=== PATIENT | female | born 1945 | race Caucasian/White ===

== ENCOUNTER 2018-08-28 09:31 | Day surgery (SDC) | payer MEDICARE, BC ==
[~2018-08-28] VITALS: Ht 170.2 cm; Wt 103.0 kg
[~2018-08-28 09:31] MED LIST: ACET325 PO; ACET500 PO; ASPI325 PO; ASPI325EC PO; ATOR20 PO; Accuneb1.25 MG/3; BENA20 PO; Benazepril HCl10 MG PO; CELE200 PO; CENTRUM COMPLE1 EACH PO; CENTRUM SILVER1 EAC2 PO; CHOL10002; CHOL10002 PO; CONEST.625 PO; CYCL10 PO; ESTMED1.5T PO; FLUO10 PO; FOLBIC RF TABL1 EACH PO; FURO40 PO; HYDCHL12.5 PO; Lotensin Hct 21 EACH PO; MELA3 PO; OXYC5 PO; POTA10T PO; POTCHL20ER PO; Prozac20 MG; Prozac40 MG PO; ROXICODONE5 MG PO; SIMV10 PO; VITAMIN B122500 MC1 PO
== END 2018-08-28 12:37 | disposition home or self-care (01) ==
LOC: ORSCSDS 09:31
PROVIDERS: Internal Medicine Gastroenterology
PROC: 0DBP8ZX Excision of Rectum, Via Natural or Artificial Opening Endoscopic, Diagnostic (ICD-10-PCS; principal; 2018-08-28 11:00)
DX: Z12.11 Encounter for screening for malignant neoplasm of colon (principal); K62.1 Rectal polyp; Z86.010 Personal history of colon polyps; I10 Essential (primary) hypertension; F41.8 Other specified anxiety disorders; E05.90 Thyrotoxicosis, unspecified without thyrotoxic crisis or storm; Z79.899 Other long term (current) drug therapy
CPT/HCPCS: 88305; J7120

== ENCOUNTER 2019-04-17 09:55 | Day surgery (SDC) | payer MEDICARE, OTHER ==
[~2019-04-17] VITALS: Ht 167.6 cm; Wt 107.1 kg
[~2019-04-17 09:55] MED LIST changes: +Aspir 8181 MG PO; +MELATONIN10 M2 PO; +Magnesium500 M1 PO; +Potassium99 MG PO; +Premarin0.45 MG PO
--- NOTE | 2019-04-17 11:50 | NUR ---
04/17/19 Feli [place] SIMETHICONE USED DURING PROCEDURE.
== END 2019-04-17 12:45 | disposition home or self-care (01) ==
LOC: ORSCSDS 09:55
PROVIDERS: Internal Medicine Gastroenterology
PROC: 0DBK8ZX Excision of Ascending Colon, Via Natural or Artificial Opening Endoscopic, Diagnostic (ICD-10-PCS; principal; 2019-04-17 11:15)
DX: Z12.11 Encounter for screening for malignant neoplasm of colon (principal); D12.2 Benign neoplasm of ascending colon; Z86.010 Personal history of colon polyps; I10 Essential (primary) hypertension; F41.8 Other specified anxiety disorders; E05.90 Thyrotoxicosis, unspecified without thyrotoxic crisis or storm; Z79.82 Long term (current) use of aspirin; Z79.899 Other long term (current) drug therapy
CPT/HCPCS: 88305; J0330; J0461; J2405; J2704; J7120

== ENCOUNTER 2020-06-08 10:33 | Day surgery (SDC) | payer MEDICARE, OTHER ==
[~2020-06-08] VITALS: Ht 170.2 cm; Wt 108.1 kg
[~2020-06-08 10:33] MED LIST changes: +Amlodipine Besyl5 MG PO; +Aspirin EC81 MG PO; +BENAZEPRIL HCL20 M1 PO; +BUME1 PO; +MAGNESIUM GLU27.5 M1 PO; +MELATONIN1010 PO; +POTASSIUM GLUCO99 M1 PO; +PREMARIN0.45 MG PO
--- NOTE | 2020-06-08 11:35 | NUR ---
06/08/20 Ashia5 Dianne Mark 1 TRY RIGHT HAND BLEW CMML
== END 2020-06-08 13:50 | disposition home or self-care (01) ==
LOC: ORSCSDS 10:33
PROVIDERS: Internal Medicine Gastroenterology
PROC: 0DBM8ZX Excision of Descending Colon, Via Natural or Artificial Opening Endoscopic, Diagnostic (ICD-10-PCS; principal; 2020-06-08 12:15)
PROC: 0DBK8ZX Excision of Ascending Colon, Via Natural or Artificial Opening Endoscopic, Diagnostic (ICD-10-PCS; principal; 2020-06-08 12:15)
DX: R10.32 Left lower quadrant pain (principal); D12.4 Benign neoplasm of descending colon; D12.2 Benign neoplasm of ascending colon; K64.8 Other hemorrhoids; K64.4 Residual hemorrhoidal skin tags; I10 Essential (primary) hypertension; E78.49 Other hyperlipidemia; E05.90 Thyrotoxicosis, unspecified without thyrotoxic crisis or storm; Z79.899 Other long term (current) drug therapy; Z79.82 Long term (current) use of aspirin
CPT/HCPCS: 88305; J2704; J7120

== ENCOUNTER 2022-02-22 08:56 | Day surgery (SDC) | payer MEDICARE, BC ==
[2022-02-22] MEDS ORDERED: METF500 PO (11:21)
[2022-02-22] MEDS ORDERED: META800 PO (11:21)
[2022-02-22] MEDS ORDERED: FURO20 PO (11:22)
[2022-02-22] MEDS ORDERED: POTA10T PO (11:22)
[2022-02-22] MEDS ORDERED: HYDCHL25 PO (11:22)
[2022-02-22] MEDS ORDERED: Calcium Carbon500 MG PO (11:23)
[2022-02-22] MEDS ORDERED: Vitamin D400 UNI1 PO (11:23)
== END 2022-02-22 12:05 | disposition home or self-care (01) ==
LOC: ATC 08:56
DX: N28.9 Disorder of kidney and ureter, unspecified (principal); I10 Essential (primary) hypertension; E03.8 Other specified hypothyroidism; M19.90 Unspecified osteoarthritis, unspecified site; E78.5 Hyperlipidemia, unspecified; Z88.1 Allergy status to other antibiotic agents
CPT/HCPCS: 96360; J7030

== ENCOUNTER 2022-10-04 01:42 | Day surgery (SDC) | payer MEDICARE, BC ==
[~2022-10-04] VITALS: Wt 117.7 kg
[~2022-10-04 01:42] MED LIST changes: +Calcium Carbon500 MG PO; +FURO20 PO; +HYDCHL25 PO; +META800 PO; +METF500 PO; +Vitamin D400 UNI1 PO
[2022-10-04] MEDS ORDERED: ROPINIROLE HC0.2510 PO (15:25)
[2022-10-04] MEDS ORDERED: MYRBETRIQ50 MG PO (15:27)
[2022-10-04] MEDS ORDERED: Norvasc5 MG PO (15:28)
[2022-10-04] MEDS ORDERED: PRED5 PO (15:32)
== END 2022-10-04 16:23 | disposition home or self-care (01) ==
LOC: ATC 01:42
DX: M31.6 Other giant cell arteritis (principal); N18.9 Chronic kidney disease, unspecified; E11.22 Type 2 diabetes mellitus with diabetic chronic kidney disease; M16.12 Unilateral primary osteoarthritis, left hip
CPT/HCPCS: 96365; J3262

== ENCOUNTER 2022-10-12 18:57 | Emergency (ER) | payer MEDICARE, BC ==
[~2022-10-12] VITALS: Ht 170.2 cm; Wt 97.5 kg
[~2022-10-12 18:57] MED LIST changes: +MYRBETRIQ50 MG PO; +Norvasc5 MG PO; +PRED5 PO; +ROPINIROLE HC0.2510 PO
[2022-10-12] MEDS ORDERED: HYDR1TAB94 PO (20:05)
== END 2022-10-12 20:19 | disposition home or self-care (01) ==
LOC: ER 18:57
DX: S43.014A Anterior dislocation of right humerus, initial encounter (principal); X58.XXXA Exposure to other specified factors, initial encounter
CPT/HCPCS: 73030; J2704

== ENCOUNTER 2022-12-28 06:54 | Day surgery (SDC) | payer MEDICARE, BC ==
[~2022-12-28] VITALS: Ht 170.2 cm; Wt 117.9 kg
[~2022-12-28 06:54] MED LIST changes: +ACTEMRA400 MG/20 IV; +ALEN70 PO; +ALPR.25 PO; +AMLO5 PO; +CALC.25 PO; +HYDR1TAB94 PO; +LISI20 PO; +MAGNESIUM OXID500 MG PO; +Norco 5-325 Ta1 EACH PO; +OZEMPIC2 MG/0.75 SQ; +Prednisone10 MG PO; +Premarin0.3 MG PO; +ROPI.25 PO; +TOPROL XL25 MG PO; +Vitamin B Comple1 EA PO; +Vitamin D1000 UNI1 PO; +XARELTO20 MG PO
[2022-12-28 07:17] VITALS: BP 134/90
[2022-12-28 09:30] VITALS: BP 153/90
[2022-12-28 09:45] VITALS: BP 152/83
[2022-12-28 10:00] VITALS: BP 149/77
[2022-12-28 10:15] VITALS: BP 149/76
[2022-12-28 10:30] VITALS: BP 138/87
--- NOTE | 2022-12-28 12:02 | NUR ---
PT UP AND DRESSED PER SELF. SALINE LOCK REMOVED WITH CATHETER INTACT. DISCHARGE REVIEWED WITH PT, VERBALIZES UNDERSTANDING. PT RIDE HERE AND PT DISCHARGED PER W/C WITH ONE STAFF.
== END 2022-12-28 22:56 | disposition home or self-care (01) ==
LOC: MHTC 06:54
DX: I89.0 Lymphedema, not elsewhere classified (principal); N28.1 Cyst of kidney, acquired; N18.9 Chronic kidney disease, unspecified; F32.A Depression, unspecified; I12.9 Hypertensive chronic kidney disease with stage 1 through stage 4 chronic kidney disease, or unspecified chronic kidney disease; Z88.1 Allergy status to other antibiotic agents
CPT/HCPCS: 76937; 99152; 99153; C1769; C1887; C1894; J1644; J2250; J2405; J3010; J7030; Q9967

== ENCOUNTER 2023-01-30 00:22 | Day surgery (SDC) | payer MEDICARE, BC ==
[2023-01-30 08:04] VITALS: BP 159/93
== END 2023-01-30 09:55 | disposition home or self-care (01) ==
LOC: ATC 00:22
DX: M31.6 Other giant cell arteritis (principal); N18.9 Chronic kidney disease, unspecified; M16.12 Unilateral primary osteoarthritis, left hip
CPT/HCPCS: J3262

== ENCOUNTER 2023-02-27 02:28 | Day surgery (SDC) | payer MEDICARE, BC ==
[2023-02-27 08:58] VITALS: BP 133/89
== END 2023-02-27 10:51 | disposition home or self-care (01) ==
LOC: ATC 02:28
DX: M31.6 Other giant cell arteritis (principal); N18.9 Chronic kidney disease, unspecified; E11.22 Type 2 diabetes mellitus with diabetic chronic kidney disease; M16.12 Unilateral primary osteoarthritis, left hip
CPT/HCPCS: 96365; J3262

== ENCOUNTER 2023-04-26 02:29 | Day surgery (SDC) | payer MEDICARE, BC ==
[2023-04-26 10:00] VITALS: BP 150/81
== END 2023-04-26 11:29 | disposition home or self-care (01) ==
LOC: ATC 02:29
DX: M31.6 Other giant cell arteritis (principal); N18.9 Chronic kidney disease, unspecified; E11.22 Type 2 diabetes mellitus with diabetic chronic kidney disease; M16.12 Unilateral primary osteoarthritis, left hip
CPT/HCPCS: 96365; J3262

== ENCOUNTER 2023-05-29 00:30 | Day surgery (SDC) | payer MEDICARE, BC ==
[2023-05-29 10:05] VITALS: BP 132/79
--- NOTE | 2023-05-31 17:30 | NUR ---
STOP TIME 9709
== END 2023-05-29 12:07 | disposition home or self-care (01) ==
LOC: ATC 00:30
DX: M31.6 Other giant cell arteritis (principal); E11.22 Type 2 diabetes mellitus with diabetic chronic kidney disease; N18.9 Chronic kidney disease, unspecified
CPT/HCPCS: 96365; J3262

== ENCOUNTER 2023-06-15 09:28 | Day surgery (SDC) | payer MEDICARE, BC ==
[2023-06-15] VITALS (19 sets, daily range): BP systolic 165–204; BP diastolic 92–139
[~2023-06-15 09:28] MED LIST changes: +XARELTO15 MG PO; -XARELTO20 MG PO
[2023-06-15] MEDS ORDERED: ALBU90OI INH (10:53)
[2023-06-15] MEDS ORDERED: ESTRADIOL (TWI1 EAC4 TD (10:54)
[2023-06-15] MEDS ORDERED: GABA100 PO (10:55)
[2023-06-15] MEDS ORDERED: Norco 5-325 Ta1 EACH PO (10:57)
[2023-06-15] MEDS ORDERED: META800 PO (10:59)
[2023-06-15] MEDS ORDERED: MYRBETRIQ50 MG PO (11:00)
[2023-06-15] MEDS ORDERED: OMEP20ER PO (11:01)
[2023-06-15] MEDS ORDERED: ONDA4 PO (11:02)
--- NOTE | 2023-06-15 11:15 | NUR ---
PT AWAKE AND CONVERSING APPROPRIATELY POST PROCEDURE. PT DENIES PAIN POST PROCEDURE, VSS ON RA.
--- NOTE | 2023-06-15 11:44 | NUR ---
PT DRESSED SELF WITHOUT ISSUE, IV REMOVED-CANNULA INTACT. PT RECEIVED DISCHARGE INSTRUCTIONS, MED LIST AND AFTER CARE INSTRUCTIONS; VERBALIZED GOOD UNDERSTANDING. PT LEFT FACILITY VIA W/C, CONDITION STABLE.
== END 2023-06-15 12:30 | disposition home or self-care (01) ==
LOC: ORSCMMR 09:28 → MHTC 09:28 → ORSCMMR 09:32 → ORD 10:30 → MHTC 12:30 → ORSCMMR 12:30
DX: R93.1 Abnormal findings on diagnostic imaging of heart and coronary circulation (principal); I51.7 Cardiomegaly; I70.0 Atherosclerosis of aorta; I31.39 Other pericardial effusion (noninflammatory); I08.8 Other rheumatic multiple valve diseases
CPT/HCPCS: 93312; 93325; A9270; J2704; J7030

== ENCOUNTER 2023-06-26 03:32 | Day surgery (SDC) | payer MEDICARE, BC ==
[~2023-06-26 03:32] MED LIST changes: +ALBU90OI INH; +ESTRADIOL (TWI1 EAC4 TD; +GABA100 PO; +OMEP20ER PO; +ONDA4 PO
[2023-06-26 15:32] VITALS: BP 170/93
== END 2023-06-26 23:10 | disposition home or self-care (01) ==
LOC: ATC 03:32
DX: M31.6 Other giant cell arteritis (principal); E11.22 Type 2 diabetes mellitus with diabetic chronic kidney disease; N18.9 Chronic kidney disease, unspecified; M16.12 Unilateral primary osteoarthritis, left hip
CPT/HCPCS: 96365; J3262

== ENCOUNTER 2023-08-30 00:13 | Day surgery (SDC) | payer MEDICARE, BC ==
[2023-08-30] MEDS ORDERED: TOCILIZUMAB IV SCH (06:00)
[2023-08-30] MEDS ORDERED: NS IV SCH (06:00)
[2023-08-30 07:58] VITALS: BP 148/80
== END 2023-08-30 09:30 | disposition home or self-care (01) ==
LOC: ATC 00:13
DX: M31.6 Other giant cell arteritis (principal); N18.9 Chronic kidney disease, unspecified; E11.22 Type 2 diabetes mellitus with diabetic chronic kidney disease; M85.80 Other specified disorders of bone density and structure, unspecified site; M16.12 Unilateral primary osteoarthritis, left hip
CPT/HCPCS: 96365; J3262

== ENCOUNTER 2023-11-19 07:51 | Emergency (ER) | payer MEDICARE, BC ==
[~2023-11-19] VITALS: Ht 170.2 cm; Wt 108.9 kg
[2023-11-19] MEDS ORDERED: XARELTO20 M1 PO (08:21)
[2023-11-19] MEDS ORDERED: ESTRADIOL TD (08:22)
[2023-11-19 08:25] LABS: Source, Urine Clean Catch
[2023-11-19 08:46] LABS: Appearance, Urine Bloody (Clear); Bilirubin, Urine Neg (Neg); Blood, Urine 4+ (Neg); Color, Urine Red (P-Yellow); Glucose Qualitative, Urine Neg (Neg); Ketones, Urine Neg (Neg); Leukocyte Esterase, Urine 1+ (Neg); Nitrite, Urine Neg (Neg); Protein, Urine 4+ (Neg); Specific Gravity, Urine 1.015 (1.003-1.022); Urobilinogen, Urine NORM (Normal); pH, Urine 6.5 (5.0-8.0)
[2023-11-19 08:52] LABS: Bacteria Not Seen /hpf; Red Blood Cells, Urine TNTC /hpf (0-2); Squamous Epithelial Cells Rare /hpf (Few); White Blood Cells, Urine 25-50 /hpf (0-5)
[2023-11-19] MEDS ORDERED: NITR100CA PO (09:02)
[2023-11-19 09:09] VITALS: BP 154/90
== END 2023-11-19 09:09 | disposition home or self-care (01) ==
LOC: ER 07:51
PROVIDERS: Student in an Organized Health Care Education/Training Program
DX: N39.0 Urinary tract infection, site not specified (principal); Z88.1 Allergy status to other antibiotic agents; Z79.899 Other long term (current) drug therapy; I10 Essential (primary) hypertension
CPT/HCPCS: 81001; 87077; 87086; 87186; 99283

== ENCOUNTER → 2024-11-08 | Outpatient (CLI) | payer MEDICARE, BC ==
[~2024-11-08] MED LIST changes: +ESTRADIOL TD; +NITR100CA PO; +XARELTO20 M1 PO
[2024-11-08 16:24] LABS: BASOPHILS ABSOLUTE AUTO 0.03 K/mm3 (0.00-0.23); BASOPHILS PERCENT AUTO 0 % (0-2); EOSINOPHILS ABSOLUTE AUTO 0.24 K/mm3 (0.00-0.68); EOSINOPHILS PERCENT AUTO 3 % (0-6); Hematocrit 41.2 % (33.0-51.0); Hemoglobin 13.3 g/dL (11.5-16.0); IMMATURE GRAN ABSOLUTE AUTO 0.01 K/mm3 (0.00-0.10); IMMATURE GRAN PERCENT AUTO 0 % (0-1); LYMPHOCYTES ABSOLUTE AUTO 1.47 K/mm3 (0.84-5.20); LYMPHOCYTES PERCENT AUTO 21 % (21-46); MONOCYTES ABSOLUTE AUTO 0.69 K/mm3 (0.16-1.47); MONOCYTES PERCENT AUTO 10 % (4-13); Mean Corpuscular HGB 29.8 pg (26.0-34.0); Mean Corpuscular HGB Conc 32.3 g/dL (31.5-36.5); Mean Corpuscular Volume 92 fL (80-100); Mean Platelet Volume 11.5 fL (9.1-12.4); NEUTROPHILS ABSOLUTE AUTO 4.61 K/mm3 (1.96-9.15); NEUTROPHILS PERCENT AUTO 65 % (41-73); Platelet Count 177 K/mm3 (150-400); RDW Coefficient Variation 13.4 % (11.7-14.2); RDW Standard Deviation 45.7 fL (35.1-46.3); Red Blood Cell Count 4.47 M/mm3 (3.80-5.20); White Blood Cell Count 7.05 K/mm3 (4.00-11.30)
[2024-11-08 17:54] LABS: C-REACTIVE PROTEIN, EXT RANGE <0.290 mg/dL (0.000-0.300)
[2024-11-08 18:01] LABS: Alanine Aminotransfer (ALT/SGP 42 U/L (12-78); Albumin/Globulin Ratio 1.1 (0.8-1.8); Alk Phos 82 U/L (50-136); Anion Gap 9 mmol/L (3-11); Aspartate Aminotrans (AST/SGOT 31 U/L (12-37); Bilirubin, Total 0.7 mg/dL (0.1-1.0); Blood Urea Nitrogen 25 mg/dL (8-24); Bun/Creatinine Ratio 21.7 (12.0-20.0); CO2, Blood 29 mmol/L (21-32); Calcium, Blood 10.3 mg/dL (8.5-10.1); Chloride, Blood 101 mmol/L (98-108); Creatinine, Blood 1.15 mg/dL (0.40-1.00); Globulin, Blood 3.6 g/dL (2.2-4.0); Glomerular Filtration Rate 49 (60-); Glucose, Blood 104 mg/dL (70-99); Potassium, Blood 4.1 mmol/L (3.5-5.5); Sodium, Blood 135 mmol/L (136-145); Total Protein, Blood 7.6 g/dL (6.4-8.2)
== END ==
LOC: LAB 13:19 → LAB SHORT 13:19
PROVIDERS: Internal Medicine
DX: M31.6 Other giant cell arteritis (principal)
CPT/HCPCS: 36415; 80053; 85025; 85651; 86140

== ENCOUNTER → 2025-03-12 | Outpatient (CLI) | payer MEDICARE, BC ==
[2025-03-12 19:57] LABS: BASOPHILS ABSOLUTE AUTO 0.01 K/mm3 (0.00-0.23); BASOPHILS PERCENT AUTO 0 % (0-2); EOSINOPHILS ABSOLUTE AUTO 0.01 K/mm3 (0.00-0.68); EOSINOPHILS PERCENT AUTO 0 % (0-6); Hematocrit 37.5 % (33.0-51.0); Hemoglobin 12.2 g/dL (11.5-16.0); IMMATURE GRAN ABSOLUTE AUTO 0.05 K/mm3 (0.00-0.10); IMMATURE GRAN PERCENT AUTO 1 % (0-1); LYMPHOCYTES ABSOLUTE AUTO 1.26 K/mm3 (0.84-5.20); LYMPHOCYTES PERCENT AUTO 12 % (21-46); MONOCYTES ABSOLUTE AUTO 0.88 K/mm3 (0.16-1.47); MONOCYTES PERCENT AUTO 8 % (4-13); Mean Corpuscular HGB Conc 32.5 g/dL (31.5-36.5); Mean Corpuscular Volume 88 fL (80-100); NEUTROPHILS ABSOLUTE AUTO 8.48 K/mm3 (1.96-9.15); NEUTROPHILS PERCENT AUTO 79 % (41-73); NRBC ABSOLUTE 0.00 K/mm3 (0.00-0.02); NRBC Auto 0.0 /100 WBC (0.0-0.2); Platelet Count 240 K/mm3 (150-400); RDW Coefficient Variation 13.9 % (11.7-14.2); RDW Standard Deviation 44.9 fL (35.1-46.3)
== END ==
LOC: LAB SHORT 19:39 → LAB 19:39
PROVIDERS: Internal Medicine
DX: R42 Dizziness and giddiness (principal); M31.6 Other giant cell arteritis
CPT/HCPCS: 85025; 85651

== ENCOUNTER 2025-04-04 13:02 | Emergency (ER) | payer MEDICARE, BC ==
[~2025-04-04] VITALS: Ht 170.2 cm; Wt 108.9 kg
[2025-04-04 14:55] LABS: BASOPHILS ABSOLUTE AUTO 0.04 K/mm3 (0.00-0.23); BASOPHILS PERCENT AUTO 1 % (0-2); EOSINOPHILS ABSOLUTE AUTO 0.13 K/mm3 (0.00-0.68); EOSINOPHILS PERCENT AUTO 2 % (0-6); Hematocrit 38.9 % (33.0-51.0); Hemoglobin 12.7 g/dL (11.5-16.0); IMMATURE GRAN ABSOLUTE AUTO 0.02 K/mm3 (0.00-0.10); IMMATURE GRAN PERCENT AUTO 0 % (0-1); LYMPHOCYTES ABSOLUTE AUTO 1.37 K/mm3 (0.84-5.20); LYMPHOCYTES PERCENT AUTO 21 % (21-46); MONOCYTES ABSOLUTE AUTO 0.74 K/mm3 (0.16-1.47); MONOCYTES PERCENT AUTO 12 % (4-13); Mean Corpuscular HGB Conc 32.6 g/dL (31.5-36.5); Mean Corpuscular Volume 88 fL (80-100); NEUTROPHILS ABSOLUTE AUTO 4.11 K/mm3 (1.96-9.15); NEUTROPHILS PERCENT AUTO 64 % (41-73); NRBC ABSOLUTE 0.00 K/mm3 (0.00-0.02); NRBC Auto 0.0 /100 WBC (0.0-0.2); Platelet Count 197 K/mm3 (150-400); RDW Coefficient Variation 14.7 % (11.7-14.2); RDW Standard Deviation 47.3 fL (35.1-46.3)
[2025-04-04 15:14] LABS: Alanine Aminotransfer (ALT/SGP 42.0 U/L (12-78); Albumin, Blood 3.7 g/dL (3.4-5.0); Albumin/Globulin Ratio 1.1 (0.8-1.8); Anion Gap 6.0 mmol/L (3-11); Aspartate Aminotrans (AST/SGOT 32.0 U/L (12-37); Bilirubin, Total 0.6 mg/dL (0.1-1.0); Blood Urea Nitrogen 22.0 mg/dL (8-24); CO2, Blood 31.0 mmol/L (21-32); Calcium, Blood 10.6 mg/dL (8.5-10.1); Chloride, Blood 103.0 mmol/L (98-108); Creatinine, Blood 1.21 mg/dL (0.40-1.00); Globulin, Blood 3.5 g/dL (2.2-4.0); Glucose, Blood 98.0 mg/dL (70-99); Potassium, Blood 3.6 mmol/L (3.5-5.5); Sodium, Blood 136.0 mmol/L (136-145); Total Protein, Blood 7.2 g/dL (6.4-8.2)
[2025-04-04 16:37] VITALS: BP 192/98
== END 2025-04-04 17:09 | disposition home or self-care (01) ==
LOC: ER 13:02
PROVIDERS: Physician Assistant
DX: K40.90 Unilateral inguinal hernia, without obstruction or gangrene, not specified as recurrent (principal); I10 Essential (primary) hypertension; Z88.8 Allergy status to other drugs, medicaments and biological substances; Z79.899 Other long term (current) drug therapy
CPT/HCPCS: 74177; 80053; 85025; 99284-25; Q9967

== ENCOUNTER 2025-05-20 05:49 | Day surgery (SDC) | payer MEDICARE, BC ==
[2025-05-20] VITALS (10 sets, daily range): BP systolic 112–203; BP diastolic 59–98
[~2025-05-20] VITALS: Ht 167.6 cm; Wt 113.8 kg
[~2025-05-20 05:49] MED LIST changes: +MOUNJARO10 MG/0.5 SC; +TELM80 PO; -XARELTO20 M1 PO
[2025-05-20] MEDS ORDERED: Bupivacaine 0.25% Epi 1:200000 30 ML Vial ONE (06:52)
[2025-05-20] MEDS ORDERED: CeFAZolin Sodium 2,000 MG in NS 100 ML IV SCH (06:55)
[2025-05-20] MEDS ORDERED: Ondansetron HCl 2 MG / ML 2ML Vial ONE (07:01)
[2025-05-20] MEDS ORDERED: Dexamethasone Sod Phos 10 MG/ML 1ML VIAL ONE (07:01)
[2025-05-20] MEDS ORDERED: Rocuronium Bromide 10 MG/ML 5ML Injection IV ONE (07:01)
[2025-05-20] MEDS ORDERED: CeFAZolin Sodium 2,000 MG VIAL ONE (07:02)
[2025-05-20] MEDS ORDERED: FentaNYL Citrate 50 MCG/ML 2 ML Injection ONE (07:03)
--- NOTE | 2025-05-20 07:06 | NUR ---
PATIENT ACCOMPANIED BY FRIEND,[place], WHO WILL BE RIDE HOME TODAY. REPORTS NERVE STIMULATOR IN BACK HAS BATTERY.
[2025-05-20] MEDS ORDERED: Albuterol 2.5 MG/3 ML VIAL INH PRN (07:10)
[2025-05-20] MEDS ORDERED: FentaNYL Citrate 50 MCG/ML 2 ML Injection IV PRN ×2 (07:10)
[2025-05-20] MEDS ORDERED: Ondansetron HCl 2 MG / ML 2ML Vial IV PRN (07:10)
[2025-05-20] MEDS ORDERED: HYDROmorphone HCl/Pf 1MG SYR IV PRN (07:10)
[2025-05-20] MEDS ORDERED: Sugammadex Sodium 200 MG/2ML SDV (100 MG/ML) ONE (07:44)
[2025-05-20] MEDS ORDERED: ePHEDrine Sulfate 50 MG/ML 1ML Injection ONE (08:06)
[2025-05-20] MEDS ORDERED: OxyCODONE 5 mg/Acetamin 325 mg TABLET PO PRN (09:35)
--- NOTE | 2025-05-20 10:02 | NUR ---
Report received from Pankaj ALEX. VSS. Pt on 2L supplemental O2 via NC. A&OX4. Pt able to reposition self in bed. Pt requesting PO fluids and tolerating them well. Pt has 4 surg sites to abd covered with dermabond that are CDI. Pt denies pain, nausea or other discomforts.
--- NOTE | 2025-05-20 10:40 | NUR ---
Patient up to Ambulate independently with personal cane. Gait consistent with pt baseline. VSS and consistent with pt baseline. Pt has no complaints and verbalizes readiness to go home. Discharge instructions reviewed with patient. Patient verbalizes understanding. Copy given to patient to take home. Pt educated to resume her Xarelto 72 hours post procedure. Dressing to procedure site clean, dry, intact with no visible drainage, swelling, erythema or bruising noted. Patient States Post-Procedure ride home has been arranged. Discharged via wheelchair to private car for ride home. Pt belongings returned to pt.
== END 2025-05-20 10:40 | disposition home or self-care (01) ==
LOC: ORSCMMR 05:49 → ORD 07:30 → ORSCMMR 10:40
PROVIDERS: Surgery
PROC: 8E0W4CZ Robotic Assisted Procedure of Trunk Region, Percutaneous Endoscopic Approach (ICD-10-PCS; principal; 2025-05-20 07:30)
PROC: 0YU54JZ Supplement Right Inguinal Region with Synthetic Substitute, Percutaneous Endoscopic Approach (ICD-10-PCS; principal; 2025-05-20 07:30)
PROC: 3E0T3BZ Introduction of Anesthetic Agent into Peripheral Nerves and Plexi, Percutaneous Approach (ICD-10-PCS; principal; 2025-05-20 07:30)
DX: K40.30 Unilateral inguinal hernia, with obstruction, without gangrene, not specified as recurrent (principal); K66.0 Peritoneal adhesions (postprocedural) (postinfection); I12.9 Hypertensive chronic kidney disease with stage 1 through stage 4 chronic kidney disease, or unspecified chronic kidney disease; N18.9 Chronic kidney disease, unspecified; G47.33 Obstructive sleep apnea (adult) (pediatric); E66.9 Obesity, unspecified; Z68.39 Body mass index [BMI] 39.0-39.9, adult; Z79.899 Other long term (current) drug therapy; Z79.01 Long term (current) use of anticoagulants
CPT/HCPCS: C1781; J0690; J1100; J2405; J2704; J3010; J7120

== ENCOUNTER 2025-06-26 04:28 | Day surgery (SDC) | payer MEDICARE, BC ==
[2025-06-26] MEDS ORDERED: Lidocaine HCl 4% Cream 5 GM ONE (12:17)
== END 2025-06-26 23:00 | disposition home or self-care (01) ==
LOC: WOUND 04:28
DX: L97.822 Non-pressure chronic ulcer of other part of left lower leg with fat layer exposed (principal); I12.9 Hypertensive chronic kidney disease with stage 1 through stage 4 chronic kidney disease, or unspecified chronic kidney disease; N18.9 Chronic kidney disease, unspecified; E78.5 Hyperlipidemia, unspecified; M19.90 Unspecified osteoarthritis, unspecified site; Z90.49 Acquired absence of other specified parts of digestive tract; Z90.710 Acquired absence of both cervix and uterus
CPT/HCPCS: A9270; G0463

== ENCOUNTER 2025-07-01 00:51 | Day surgery (SDC) | payer MEDICARE, BC | END 2025-07-01 23:38 | disposition home or self-care (01) | LOC: WOUND 00:51 | DX: L97.822 Non-pressure chronic ulcer of other part of left lower leg with fat layer exposed (principal); I10 Essential (primary) hypertension | CPT/HCPCS: G0463 ==

== ENCOUNTER 2025-07-15 11:00 | Day surgery (SDC) | payer MEDICARE, BC ==
[~2025-07-15 11:00] MED LIST changes: +Lidocaine HCl 4% Cream 5 GM ONE
== END 2025-07-15 23:00 | disposition home or self-care (01) ==
LOC: WOUND 11:00
DX: L97.822 Non-pressure chronic ulcer of other part of left lower leg with fat layer exposed (principal); I10 Essential (primary) hypertension
CPT/HCPCS: A6196; A9270